=== PATIENT | male | born 1955 | race Caucasian/White ===

== ENCOUNTER 2020-04-22 12:37 | Day surgery (SDC) | payer MEDICARE, OTHER ==
[2020-04-22] MEDS ORDERED: BUPIVACAINE 0.5% VIAL IJ ONE (12:38)
[2020-04-22] MEDS ORDERED: Xylocaine 1% Vial 30 ML PF IJ ONE (12:38)
[2020-04-22] MEDS ORDERED: Depo-Medrol 40 MG/ML IM ONE (12:38)
[2020-04-22] MEDS ORDERED: Lactated Ringers 1,000 ML IV ONE (16:09)
--- NOTE | 2020-04-22 16:59 | XRAY ---
Indication: Right SI joint injection. Intraoperative fluoroscopy was provided for 7 seconds. 2 digital spot images submitted for interpretation demonstrates posterior needle tip projecting inferior right SI joint. Correlate with intraoperative findings/report.
--- NOTE | 2020-04-22 17:01 | XRAY ---
7 seconds fluoroscopy time in surgery for injection of the right SI joint.
== END 2020-04-22 15:59 | disposition home or self-care (01) ==
LOC: SDC-PAIN 12:37
PROVIDERS: ATTEND Psychiatry & Neurology Pain Medicine
DX: M46.1 Sacroiliitis, not elsewhere classified (principal); E11.9 Type 2 diabetes mellitus without complications; I10 Essential (primary) hypertension; K21.9 Gastro-esophageal reflux disease without esophagitis; Z86.79 Personal history of other diseases of the circulatory system; F41.9 Anxiety disorder, unspecified; Z79.899 Other long term (current) drug therapy
CPT/HCPCS: 27096; 72020; 77002; 82947; 82962; J1030; J2001; G0260

== ENCOUNTER 2023-11-22 09:37 | Day surgery (SDC) | payer MEDICARE ==
[2023-11-22] MEDS ORDERED: Depo-Medrol 40 MG/ML IM ONE (09:38)
[2023-11-22] MEDS ORDERED: Xylocaine-Mpf 2% 5 Ml Vial IJ ONE (09:38)
[2023-11-22] MEDS ORDERED: DIPRIVAN 200 MG/20 ML IV ONE (11:42)
[2023-11-22] MEDS ORDERED: Lactated Ringers 1,000 ML IV ONE (12:55)
--- NOTE | 2023-11-22 13:23 | XRAY ---
Indication: Bilateral L4-S1 MBB. Intraoperative fluoroscopy provided for 8 seconds. Single digital spot image submitted for interpretation demonstrate posterior needle tips projecting over the expected left and right L4-S1 nerve roots. Correlate with intraoperative findings/report. Incidental incompletely visualized mid lumbar fusion hardware.
--- NOTE | 2023-11-22 14:14 | XRAY ---
8 seconds of fluoroscopy was used in surgery for a bilateral L4-S1 MBB.
== END 2023-11-22 12:05 | disposition home or self-care (01) ==
LOC: SDC-PAIN 09:37
PROVIDERS: ATTEND Psychiatry & Neurology Pain Medicine
DX: M47.817 Spondylosis without myelopathy or radiculopathy, lumbosacral region (principal); E11.9 Type 2 diabetes mellitus without complications
CPT/HCPCS: 64483; 64484; 72020; 77002; 82947; J2704

== ENCOUNTER 2023-12-28 07:13 | Day surgery (SDC) | payer MEDICARE, BC ==
[2023-12-28] MEDS ORDERED: BUPIVACAINE 0.5% VIAL IJ ONE (07:14)
[2023-12-28] MEDS ORDERED: DIPRIVAN 200 MG/20 ML IV ONE (08:47)
--- NOTE | 2023-12-28 10:08 | XRAY ---
Indication: Bilateral L4-S1 MBB. Intraoperative fluoroscopy provided for 12 seconds. Single digital spot image submitted for interpretation demonstrates posterior needle tips projecting over the expected left and right L4-S1 nerve roots. Correlate with intraoperative findings/report. Incidental incompletely visualized mid lumbar fusion hardware.
--- NOTE | 2023-12-28 10:12 | XRAY ---
12 seconds of fluoroscopy was used in surgery for a bilateral L4-S1 MBB.
[2023-12-28] MEDS ORDERED: Lactated Ringers 1,000 ML IV ONE (10:29)
== END 2023-12-28 09:20 | disposition home or self-care (01) ==
LOC: SDC-PAIN 07:13
PROVIDERS: ATTEND Psychiatry & Neurology Pain Medicine
DX: M47.816 Spondylosis without myelopathy or radiculopathy, lumbar region (principal); E11.9 Type 2 diabetes mellitus without complications
CPT/HCPCS: 64493; 64494; 72020; 77002; 82947; J2704

== ENCOUNTER 2024-01-31 07:29 | Day surgery (SDC) | payer MEDICARE, BC ==
[2024-01-31] MEDS ORDERED: Depo-Medrol 40 MG/ML IM ONE (07:30)
[2024-01-31] MEDS ORDERED: BUPIVACAINE 0.5% VIAL IJ ONE (07:30)
[2024-01-31] MEDS ORDERED: LIDOCAINE HCL 1% 50 MG/5 ML VL PF IJ ONE (07:30)
[2024-01-31] MEDS ORDERED: DIPRIVAN 200 MG/20 ML IV ONE (09:08)
[2024-01-31] MEDS ORDERED: Lactated Ringers 1,000 ML IV ONE (09:38)
--- NOTE | 2024-01-31 10:57 | XRAY ---
Indication: Left L4-S1 RFA. Intraoperative fluoroscopy provided for 27 seconds. 5 digital spot image submitted for interpretation demonstrates posterior needle tips projecting over expected left L4-S1 nerve roots. Correlate with intraoperative findings/report. Incidental incompletely visualized mid lumbar fusion hardware.
--- NOTE | 2024-01-31 12:05 | XRAY ---
27 seconds of fluoroscopy was used in surgery for a left L4-S1 RFA.
== END 2024-01-31 09:40 ==
LOC: SDC-PAIN 07:29
PROVIDERS: ATTEND Psychiatry & Neurology Pain Medicine
DX: M47.816 Spondylosis without myelopathy or radiculopathy, lumbar region (principal); M47.817 Spondylosis without myelopathy or radiculopathy, lumbosacral region; E11.9 Type 2 diabetes mellitus without complications
CPT/HCPCS: 64635; 64636; 72100; 77002; 82947; J2001; J2704

== ENCOUNTER 2024-02-01 07:15 | Day surgery (SDC) | payer MEDICARE, BC ==
[2024-02-01] MEDS ORDERED: Depo-Medrol 40 MG/ML IM ONE (07:16)
[2024-02-01] MEDS ORDERED: LIDOCAINE HCL 1% 50 MG/5 ML VL PF IJ ONE ×2 (07:16)
[2024-02-01] MEDS ORDERED: DIPRIVAN 200 MG/20 ML IV ONE (08:47)
--- NOTE | 2024-02-01 09:22 | XRAY ---
20 seconds of fluoroscopy was used in surgery for a right L4-S1 RFA.
--- NOTE | 2024-02-01 10:04 | XRAY ---
Indication: Right L4-S1 RFA. Intraoperative fluoroscopy provided for 20 seconds. 4 digital spot images submitted for interpretation demonstrates posterior needle tips projecting over the expected right L4-S1 nerve roots. Correlate with intraoperative findings/report. Incidental incompletely visualized mid lumbar fusion hardware.
[2024-02-01] MEDS ORDERED: Lactated Ringers 1,000 ML IV ONE (10:05)
== END 2024-02-01 09:26 | disposition home or self-care (01) ==
LOC: SDC-PAIN 07:15
PROVIDERS: ATTEND Psychiatry & Neurology Pain Medicine
DX: M47.816 Spondylosis without myelopathy or radiculopathy, lumbar region (principal); M47.817 Spondylosis without myelopathy or radiculopathy, lumbosacral region; E11.9 Type 2 diabetes mellitus without complications
CPT/HCPCS: 64635; 64636; 72100; 77002; 82947; J2001; J2704

== ENCOUNTER 2024-05-30 13:07 | Day surgery (SDC) | payer MEDICARE, BC ==
[2024-05-30] MEDS ORDERED: SYNVISC 16 MG/2 ML SYRINGE IU ONE (13:08)
[2024-05-30] MEDS ORDERED: LIDOCAINE HCL 1% 50 MG/5 ML VL IJ ONE (13:08)
--- NOTE | 2024-05-30 17:19 | XRAY ---
Indication: Left knee injection. Intraoperative fluoroscopy provided for 17 seconds. 2 digital spot images obtained prone submitted for interpretation demonstrates needle tip projecting over the left femur intercondylar notch. Small amount of contrast injected for needle tip placement. Correlate with intraoperative findings/report.
--- NOTE | 2024-05-30 17:32 | XRAY ---
17 seconds of fluoroscopy was used in surgery for a left intra-articular knee injection.
== END 2024-05-30 16:25 | disposition home or self-care (01) ==
LOC: SDC-PAIN 13:07
PROVIDERS: ATTEND Psychiatry & Neurology Pain Medicine
DX: M17.12 Unilateral primary osteoarthritis, left knee (principal); E11.9 Type 2 diabetes mellitus without complications
CPT/HCPCS: 20610; 73560; 77002; 82947; J7325; Q9966

== ENCOUNTER 2024-06-05 12:46 | Day surgery (SDC) | payer MEDICARE, BC ==
[2024-06-05] MEDS ORDERED: LIDOCAINE HCL 1% AMPUL 5 ML IJ ONE (12:47)
[2024-06-05] MEDS ORDERED: SYNVISC 16 MG/2 ML SYRINGE IU ONE (12:47)
--- NOTE | 2024-06-05 14:43 | XRAY ---
Indication: Left knee injection. Intraoperative fluoroscopy provided for 8 seconds. Single digital spot image submitted for interpretation demonstrates needle tip projecting over left femur intercondylar notch. Small amount of contrast injected for needle tip placement. Correlate with intraoperative findings/report.
--- NOTE | 2024-06-05 14:51 | XRAY ---
8 seconds of fluoroscopy was used in surgery for a left intra-articular knee injection.
== END 2024-06-05 13:55 | disposition home or self-care (01) ==
LOC: SDC-PAIN 12:46
PROVIDERS: ATTEND Psychiatry & Neurology Pain Medicine
DX: M17.12 Unilateral primary osteoarthritis, left knee (principal); E11.9 Type 2 diabetes mellitus without complications
CPT/HCPCS: 20610; 73560; 77002; 82947; J7325; Q9966

== ENCOUNTER 2024-06-13 12:16 | Day surgery (SDC) | payer MEDICARE, BC ==
[2024-06-13] MEDS ORDERED: SYNVISC 16 MG/2 ML SYRINGE IU ONE (12:17)
[2024-06-13] MEDS ORDERED: XYLOCAINE 1% HCL 20 ML MDV IJ ONE (12:17)
--- NOTE | 2024-06-14 09:21 | XRAY ---
8 seconds of fluoroscopy was used in surgery for a left intra-articular knee injection.
== END 2024-06-13 14:35 | disposition home or self-care (01) ==
LOC: SDC-PAIN 12:16
PROVIDERS: ATTEND Psychiatry & Neurology Pain Medicine
DX: M17.12 Unilateral primary osteoarthritis, left knee (principal); E11.9 Type 2 diabetes mellitus without complications
CPT/HCPCS: 20610; 73560; 77002; 82947; J7325; Q9966